=== PATIENT | male | born 1965 | race Caucasian/White ===

== ENCOUNTER → 2020-09-21 09:53 | Outpatient (CLI) | payer BC, SELFPAY ==
--- NOTE | 2020-09-21 09:59 | RAD_ITS ---
STUDY: X-RAY - ABDOMEN/PELVIS REASON FOR EXAM: Male, 55 years old. KIDNEY STONE TECHNIQUE: Single AP view of the abdomen / pelvis. COMPARISON: None. FINDINGS: Normal visualized lung bases. There is a moderate amount of colonic fecal material. There is a 1.9 cm calculus in the lower pole calyx of the left kidney. There are calcified phleboliths in the pelvis. Normal visualized osseous structures. RAD/Abdomen Single View IMPRESSION: 1.9 cm calculus in the lower pole calyx of the left kidney. Electronically Signed: Leo Mathias, at 11:51 EST , Service support ,
== END ==
PROVIDERS: PCP Preventive Medicine Occupational Medicine; Referring Provider Urology; Visit Provider Urology
DX: N20.0 Calculus of kidney (principal)
CPT/HCPCS: 74018

== ENCOUNTER 2020-10-01 09:54 | Day surgery (SDC) | payer BC, SELFPAY ==
--- NOTE | 2020-10-01 10:00 | RAD_ITS ---
STUDY: X-RAY - ABDOMEN/PELVIS REASON FOR EXAM: Male, 55 years old. LEFT KIDNEY STONE AND POSS RIGHT -- PRE-OP TECHNIQUE: Single AP view of the abdomen / pelvis. COMPARISON: 09/21/2020 FINDINGS: There is an unremarkable bowel gas pattern. The visualized liver, spleen and kidneys are grossly normal in size and morphology. The present described calcific opacity overlying the lower pole the left kidney is no longer visualized. There are 2 new oval calcific opacities in the pelvis which may represent passage of a stone into the bladder. Normal visualized osseous structures. RAD/Abdomen Single View IMPRESSION: Possible passage of a left renal stone into the bladder. Electronically Signed: Ridge Dacosta MD at 7:27 EST Tel , Service support ,
[2020-10-01 10:33] VITALS: BP 136/91; PULSE 75; RESP 16; TEMP 36.5; O2SAT 98; BMI 33.0
[2020-10-01 10:35] LABS: Bedside Glucose 132 mg/dL (70-110)
[2020-10-01] MEDS: Lactated Ringers 1,000 ML 100 ML IV ×2 (10:47→13:25)
--- NOTE | 2020-10-01 11:58 | HP.PCM_ITS ---
Problem List (1) Left ureteral calculus Status: Acute History of Present Illness Date of Admission: 10/01/20 Chief Complaint: Left ureteral calculi The patient is a 55 year old male who has a left ureteral calculi in the mid left ureter on KUB can see the stone difficult to see initially but after looking at it carefully can see a stone in the mid left ureter we can proceed with left extracorporeal shockwave lithotripsy probably no stent. Past Medical History Allergies canagliflozin [From Invokana] Adverse Reaction (Verified 09/24/20 10:55) PT UNSURE OF REACTION glimepiride Adverse Reaction (Verified 09/24/20 10:55) low blood sugar lisinopril Adverse Reaction (Verified 09/24/20 10:55) cough pioglitazone [From Actos] Adverse Reaction (Verified 09/24/20 10:55) PT UNSURE OF REACTION ropinirole Adverse Reaction (Verified 09/24/20 10:55) face pain sitagliptin [From Januvia] Adverse Reaction (Verified 09/24/20 10:55) PT UNSURE OF REACTION Home Medications: Ambulatory Orders Medication Instructions Recorded Atorvastatin Calcium [Lipitor] 20 mg PO QHS 09/24/20 Cyanocobalamin (Vitamin B-12) 1,000 mcg PO DAILY 09/24/20 [Vitamin B-12] Ergocalciferol (Vitamin D2) 1,250 mcg PO QWEEK 09/24/20 [Vitamin D2] Gabapentin 600 mg PO QHS 09/24/20 Liraglutide [Victoza 2-Kb] 1.2 mg SQ DAILY 09/24/20 Losartan Potassium [Cozaar] 50 mg PO DAILY 09/24/20 Metformin HCl [Metformin ER 1,000 mg PO BID 09/24/20 Osmotic] Multivitamin with Minerals 1 ea PO DAILY 09/24/20 [Multiple Vitamin] [place]-3S/Dha/Epa/Fish Oil [Fish 1 ea PO DAILY 09/24/20 Oil [place]-3 Softgel] Omeprazole 40 mg PO DAILY 09/24/20 Ubidecarenone [Coq-10] 200 mg PO DAILY 09/24/20 Zolpidem Tartrate [Ambien] 10 mg PO QHS 09/24/20 Surgical History: no surgical history Smoking Status: Former smoker Tobacco Use: Non-smoker Review of Systems Constitutional: Denies: Chills, Fever, Weight Change HEENT: Denies: Head Aches, Sinus Congestion, Sinus Drainage Cardiovascular: Denies: Chest Pain, Palpitations Respiratory: Denies: Cough, Shortness of breath at rest, Sputum production Gastrointestinal: Denies: Abdominal Pain, Nausea, Vomiting Genitourinary: Denies: Dysuria Musculoskeletal: Denies: Joint Pain, Joint Tenderness Skin: Denies: Rash, Wounds Neurological: Denies: Numbness, Tingling, Focal weakness Psychiatric: Denies: Anxiety, Depression, Homicidal Ideations, Suicidal Ideations Hematologic/ Lymphatic: Denies: Easy Bruising, Easy Bleeding VTE Information - Inpt Only VTE Present on Admission: No VTE Mechan Device Prophylaxis: SCD's - Physical Exam Vitals/I&O's: Vital Signs Temp Pulse Resp BP Pulse Ox 97.7 F L 75 16 136/91 H 98 10/01/20 10:33 10/01/20 10:33 10/01/20 10:33 10/01/20 10:33 10/01/20 10:33 Oxygen Delivery Method Room Air Weight: 101.7 kg Body Mass Index (BMI) 33.0 General: Alert, Oriented x3, Cooperative HEENT: Atraumatic, PERRLA, EOMI, Normocephalic Neck: Supple, No JVD, Negative Carotid Bruits Lungs: Clear to auscultation, Normal air movement Cardiovascular: Regular rate, No murmurs Abdomen: Bowel Sounds Present, Soft, Non Tender Extremities: No edema, Capillary Refill Less than 3 Seconds Skin: No rashes, No breakdown Musculoskeletal: No Tenderness to Palpation of Joints or Extremities Neurological: Cranial nerves II-XII grossly intact Psych/Mental Status: Normal Affect, Appropriate Microbiology Past 72 Hours 09/30/20 08:50 Interface Orders SARS-CoV-2 Antigen (Rapid) - Final Laboratory Results 10/01/20 10:30: POC Glucose 132 H Current Medications Cefazolin Sodium 2 gm/ Sodium (Chloride) 110 mls @ 150 mls/hr IV PREOP ONE Stop: 10/01/20 14:18 Lactated Ringer's () 1,000 mls @ 100 mls/hr IV .Q10H CHRISTEL Last Admin: 10/01/20 10:47 Dose: 100 mls/hr Documented by: Assessment/Plan All Active Problems Left ureteral calculus (Acute) Plan to proceed with left extracorporeal shockwave lithotripsy.
--- NOTE | 2020-10-01 12:01 | PCM.DC.URO ---
Discharge Diet: Light diet - advance as tolerated Discharge Activity: Return to Normal Activity Call your doctor if your incision/area has: Continuous Slow Oozing, Sudden Increased Bleeding Call your doctor if you observe: Fever of 101 or Higher Suture Line Care: Avoid Pulling/Pushing, Avoid Pinching/Bending Allergies/Adverse Reactions: Allergies canagliflozin [From Invokana] Adverse Reaction (Verified 09/24/20 10:55) PT UNSURE OF REACTION glimepiride Adverse Reaction (Verified 09/24/20 10:55) low blood sugar lisinopril Adverse Reaction (Verified 09/24/20 10:55) cough pioglitazone [From Actos] Adverse Reaction (Verified 09/24/20 10:55) PT UNSURE OF REACTION ropinirole Adverse Reaction (Verified 09/24/20 10:55) face pain sitagliptin [From Januvia] Adverse Reaction (Verified 09/24/20 10:55) PT UNSURE OF REACTION Medications to take at Discharge Atorvastatin Calcium [Lipitor] 20 mg PO QHS 09/24/20 Cyanocobalamin (Vitamin B-12) [Vitamin B-12] 1,000 mcg PO DAILY 09/24/20 Ergocalciferol (Vitamin D2) [Vitamin D2] 1,250 mcg PO QWEEK 09/24/20 Gabapentin 600 mg PO QHS 09/24/20 Liraglutide [Victoza 2-Kb] 1.2 mg SQ DAILY 09/24/20 Losartan Potassium [Cozaar] 50 mg PO DAILY 09/24/20 Metformin HCl [Metformin ER Osmotic] 1,000 mg PO BID 09/24/20 Multivitamin with Minerals [Multiple Vitamin] 1 ea PO DAILY 09/24/20 [place]-3S/Dha/Epa/Fish Oil [Fish Oil [place]-3 Softgel] 1 ea PO DAILY 09/24/20 Omeprazole 40 mg PO DAILY 09/24/20 Ubidecarenone [Coq-10] 200 mg PO DAILY 09/24/20 Zolpidem Tartrate [Ambien] 10 mg PO QHS 09/24/20 Ciprofloxacin [Cipro] 500 mg PO BID #6 tab 10/01/20 Hydrocodone/Acetaminophen [[place] 5-325 Tablet] 1 each PO Q4H PRN PRN 7 Days #14 tablet 10/01/20 The following prescriptions were given: Ciprofloxacin [Cipro] 500 mg PO BID #6 tab Transmission Status: Pending to [id number] Hydrocodone/Acetaminophen [[place] 5-325 Tablet] 1 each PO Q4H PRN PRN 7 Days #14 tablet PRN Reason: Pain 1-10 Or Fever Transmission Status: Received by [id number] Orders to be completed after discharge: Abdomen Single View [RAD] Time Frame: 10/01/20, Facility: [facility], Location: [facility] Primary Care Physician: Garrett Osman DO [Primary Care Provider] - Test Results: Test results from this visit will be discussed in further detail at your follow-up appointment, if applicable. Please Follow Up With: Jose Vaz MD - [phone] When: in 2 weeks, please call to make an appointment.
[2020-10-01] MEDS: Cefazolin 2 GM in 0.9% Normal Saline 100 ML IV (12:35)
--- NOTE | 2020-10-01 13:22 | PCM.OPRPT ---
Problem List (1) Left ureteral calculus Status: Acute Report of Operation Date of Procedure: 10/01/20 Pre-Operative Diagnosis: Left mid ureteral calculi Post-Operative Diagnosis: Same Surgery/Procedure Performed:: Left extracorporeal shockwave lithotripsy Description of Surgical Findings:: 55-year-old male was taken back to the operating room after smooth induction of general anesthesia he was placed supine on the table. We then used fluoroscopy to identify the stone in the mid left ureter. Was a very faint stone at the move the therapy had around and eventually were able to see the stone fragment in the mid left ureter. Once the fragment was in our therapy had we then proceeded with shockwave lithotripsy. A total of 3000 shockwaves were delivered to the stone at a rate of 90/min power ranging 5 to 7 kV. During the treatment the stone fragmented very nicely and at the end of the treatment cycle the stone was not visible anymore under fluoroscopy. Patient anesthetic was reversed he was taken back to the PACU in good condition we will follow-up in a few weeks with an x-ray. Type of Anesthesia:: General Drains: none - Admit VTE Documentation VTE Present on Admission: No VTE Mechan Device Prophylaxis: SCD's
[2020-10-01 13:30] VITALS: BP 115/83; BP 136/91; PULSE 72; RESP 18; TEMP 36.1; O2SAT 97
[2020-10-01] MEDS: Ketorolac 15 MG/ML Vial IV (13:37)
[2020-10-01 13:45] VITALS: BP 123/79; BP 136/91; PULSE 64; RESP 18; O2SAT 99
[2020-10-01 13:50] VITALS: BP 118/87; BP 136/91; PULSE 65; RESP 18; TEMP 36.2; O2SAT 100
[2020-10-01 14:44] VITALS: BP 120/94; BP 136/91; PULSE 67; RESP 18; TEMP 36.3; O2SAT 100
== END 2020-10-01 14:46 | disposition home or self-care (01) ==
LOC: SDC 09:54 → AC 10:13
PROVIDERS: PCP Preventive Medicine Occupational Medicine; Referring Provider Urology; Visit Provider Urology
PROC: (CPT 50590; principal; 2020-10-01 12:15)
DX: N20.1 Calculus of ureter (principal); I10 Essential (primary) hypertension; E78.00 Pure hypercholesterolemia, unspecified; E11.9 Type 2 diabetes mellitus without complications; J44.9 Chronic obstructive pulmonary disease, unspecified; K21.9 Gastro-esophageal reflux disease without esophagitis; G47.30 Sleep apnea, unspecified; G25.81 Restless legs syndrome; Z79.4 Long term (current) use of insulin; Z79.84 Long term (current) use of oral hypoglycemic drugs; Z79.899 Other long term (current) drug therapy; Z87.891 Personal history of nicotine dependence; Z20.828 Contact with and (suspected) exposure to other viral communicable diseases
CPT/HCPCS: 00873; 50590; 74018; 82962; 87426; 96374; 96375; 99285; C9803; J7120; A4216; J2405

== ENCOUNTER 2020-10-01 15:54 | Emergency (ER) | payer BC, SELFPAY ==
[2020-10-01 10:33] VITALS: BMI 33.0
[2020-10-01 15:55] VITALS: BP 181/94; PULSE 72; RESP 18; TEMP 36.1; O2SAT 99; BMI 33.0
--- NOTE | 2020-10-01 16:07 | ED.VIS.GEN ---
History of Present Illness Chief Complaint: Flank Pain Informant: Patient Onset: Today Current Severity: Moderate Maximum Severity: Moderate Narrative: Patient present secondary left flank pain. He had lithotripsy performed today for a 4 mm left mid ureteral stone. Patient left the hospital about an hour and a half ago. He states he was given some Toradol prior to leaving the hospital. He states he felt well when he left but approximately 15 minutes ago got severe pain in the left flank region again. He did take 1 tab of Shawmut about 10 minutes ago. He denies nausea or vomiting. He reports there was no instrumentation/stent/scope performed today. - Past Medical History (1) Left ureteral calculus Status: Acute Past Medical History - Allergies and Home Meds Allergies/Adverse Reactions: Allergies canagliflozin [From Invokana] Adverse Reaction (Verified 10/01/20 15:57) PT UNSURE OF REACTION glimepiride Adverse Reaction (Verified 10/01/20 15:57) low blood sugar lisinopril Adverse Reaction (Verified 10/01/20 15:57) cough pioglitazone [From Actos] Adverse Reaction (Verified 10/01/20 15:57) PT UNSURE OF REACTION ropinirole Adverse Reaction (Verified 10/01/20 15:57) face pain sitagliptin [From Januvia] Adverse Reaction (Verified 10/01/20 15:57) PT UNSURE OF REACTION Primary Care Physician: Jose Vaz MD [STAFF PHYSICIAN] - 3-5 Days if not improving Prior records reviewed: Yes Surgical History: no surgical history Smoking Status: Former smoker Review of Systems General: Denies: Chills, Fever Eyes: Denies: Visual changes - bilaterally ENT: Denies: Bilateral ear pain Cardiovascular: Denies: Chest pain Respiratory: Denies: Dyspnea, Cough Gastrointestinal: Reports: Abdominal pain - Left flank. Denies: Vomiting, Diarrhea Musculoskeletal: Denies: Extremity Pain Neurological: Denies: Headache Hematologic: Denies: Easy bruising, Easy bleeding Allergy: Denies: Uticaria Physical Exam Vital Signs/Narrative: Vital Signs Temp Pulse Resp BP Pulse Ox 10/01/20 15:55 97 F L 72 18 181/94 H 99 Inital Vital Signs reviewed: Yes General: Well nourished, Well developed Head: Normocephalic ENT: Moist mucous membranes Neck: Supple Cardiovascular: Regular rate, Regular rhythm Respiratory: No distress, CTA bilaterally Abdomen: Soft, Nontender, Hypoactive bowel sounds Back: Nontender Skin: Normal color Neurological: Alert, Oriented x3 Psychological: Normal affect Diagnostic/Tx/Re-eval - Medical Decision Making On review of records patient was given 15 mg of Toradol at 130 this afternoon. He was given additional 15 mg of Toradol now along with four of morphine and four of Zofran. After 30 min patient states his pain is improved and is currently rated at a three. He did have an increase in pain and was given 0.5 mg of Dilaudid. At this time pain is pain is improved and tolerable. 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 ED Disposition - Plan for ED Patient: Disposition: Home or Assisted Living Diagnosis: Kidney stone on left side, Postoperative pain Instructions: ED Post Op Wound Check, Pain, ED Kidney Stone w/ Colic Referrals: Jose Vaz MD [STAFF PHYSICIAN] - 3-5 Days if not improving
[2020-10-01] MEDS: Morphine 4 MG/ML Syringe IV (16:17)
[2020-10-01] MEDS: Ondansetron 4 MG/2 ML Vial IV (16:18)
[2020-10-01] MEDS: Ketorolac 15 MG/ML Vial IV (16:18)
[2020-10-01 17:00] VITALS: BP 183/84; PULSE 73; RESP 16; O2SAT 97
[2020-10-01] MEDS: HYDROmorphone 0.5 MG/0.5 ML SYRINGE IV (17:11)
[2020-10-01 18:31] VITALS: BP 176/84; PULSE 71; RESP 18; O2SAT 96
[2020-10-01] MEDS: HYDROcodone Bitartrate/Apap 5/325 Tablet PO (18:31)
== END 2020-10-01 18:31 | disposition home or self-care (01) ==
PROVIDERS: Emergency Provider Emergency Medicine; PCP Preventive Medicine Occupational Medicine
DX: N20.2 Calculus of kidney with calculus of ureter (principal); G89.18 Other acute postprocedural pain; Z87.891 Personal history of nicotine dependence
CPT/HCPCS: 96374; 96375; 99285; A4216; J2405

== ENCOUNTER → 2020-10-11 10:06 | Outpatient (CLI) | payer BC, SELFPAY ==
[2020-10-01 15:55] VITALS: BMI 33.0
--- NOTE | 2020-10-11 10:11 | RAD_ITS ---
STUDY: X-RAY - ABDOMEN/PELVIS REASON FOR EXAM: Male, 55 years old. Recent lithotripsy TECHNIQUE: Single AP view of the abdomen / pelvis. COMPARISON: Comparison is made with prior study dated 10/01/2020. FINDINGS: The previously seen oval calcific opacities in the pelvis are not seen at this time. There is a moderate amount of colonic fecal material. The visualized liver, spleen and kidneys are grossly normal in size and morphology. There are calcified phleboliths in the pelvis. There are mild degenerative changes of the visualized lumbar spine. RAD/Abdomen Single View IMPRESSION: The previously seen oval calcific opacities in the pelvis are not seen at this time. Electronically Signed: Leo Mathias, at 10:24 EST , Service support ,
== END ==
PROVIDERS: PCP Preventive Medicine Occupational Medicine; Referring Provider Urology; Visit Provider Urology
DX: N20.0 Calculus of kidney (principal)
CPT/HCPCS: 74018